=== PATIENT | male | born 2000 | race Caucasian/White ===

== ENCOUNTER 2023-09-20 00:25 | Emergency (ER) | payer SELFPAY ==
[2023-09-20 01:53] LABS: CORONAVIRUS COVID-19 NAA NEGATIVE (NEGATIVE); INFLUENZA A NAA NEGATIVE (NEGATIVE); RESPIRATORY SYNCYTIAL VIR NAA NEGATIVE (NEGATIVE)
== END 2023-09-20 02:15 | disposition home or self-care (01) ==
LOC: JD.ED 00:25
DX: J06.9 Acute upper respiratory infection, unspecified (principal); F17.210 Nicotine dependence, cigarettes, uncomplicated; Z88.8 Allergy status to other drugs, medicaments and biological substances
CPT/HCPCS: 0241U; 71045; 99283

== ENCOUNTER 2023-09-23 19:04 | Emergency (ER) | payer SELFPAY ==
[2023-09-23] MEDS: Albuterol 6.7 GM Inhaler INH ONE (20:48)
== END 2023-09-23 20:52 | disposition home or self-care (01) ==
LOC: JD.ED 19:04
DX: J45.909 Unspecified asthma, uncomplicated (principal); Z88.8 Allergy status to other drugs, medicaments and biological substances
CPT/HCPCS: 99285; A9270; 99283